=== PATIENT | female | born 1985 | race Caucasian/White ===

== ENCOUNTER 2022-04-18 16:51 | Emergency (ER) | payer OTHER ==
[~2022-04-18] VITALS: Ht 165.1 cm; Wt 82.0 kg
[2022-04-18 16:58] VITALS: BP 170/90
[2022-04-18] MEDS ORDERED: LEVO1.5T37 MT (18:35)
== END 2022-04-18 19:11 | disposition home or self-care (01) ==
LOC: ER 16:51
DX: Z30.012 Encounter for prescription of emergency contraception (principal); Z32.02 Encounter for pregnancy test, result negative; R03.0 Elevated blood-pressure reading, without diagnosis of hypertension; R22.42 Localized swelling, mass and lump, left lower limb
CPT/HCPCS: 81025; 99282

== ENCOUNTER 2023-11-03 13:14 | Emergency (ER) | payer OTHER ==
[~2023-11-03] VITALS: Ht 165.1 cm; Wt 81.6 kg
[~2023-11-03 13:14] MED LIST: LEVO1.5T37 MT
[2023-11-03 14:01] VITALS: O2SAT 100
[2023-11-03 15:55] LABS: CLARITY URINE CLEAR (CLEAR); COLOR URINE YELLOW (YELLOW); GLUCOSE URINE NEGATIVE (NEGATIVE); KETONES URINE NEGATIVE (NEGATIVE); LEUKOCYTE ESTERASE URINE 3+ (NEGATIVE); NITRITE URINE NEGATIVE (NEGATIVE); OCCULT BLOOD URINE 1+ (NEGATIVE); PH URINE 5.5 (4.5-8.0); PROTEIN URINE NEGATIVE (NEGATIVE); SPECIFIC GRAVITY URINE 1.009 (1.005-1.030); UROBILINOGEN URINE 0.2 E.U./dL (0.2-1.0)
[2023-11-03 16:17] LABS: BACTERIA URINE TRACE; SQUAMOUS EPITHELIAL CELL URINE 1+ /lpf (RARE/1+)
[2023-11-03] MEDS ORDERED: DOXY100T28 MT (16:30)
[2023-11-03] MEDS ORDERED: ACET-2708 MT (16:30)
[2023-11-03] MEDS: LIDOCAINE HCL 1% 20ML VIAL INFIL ONE (17:06)
[2023-11-03] MEDS: CEFTRIAXONE SODIUM 1G VIAL IM ONE (17:06)
[2023-11-03 17:17] VITALS: BP 133/76; PULSE 88; RESP 18; TEMP 98.7
[2023-11-07 13:06] LABS: CHLAMYDIA TRACHOMATIS NAA Negative (Negative); NEISSERIA GONORRHOEAE NAA Negative (Negative)
== END 2023-11-03 17:19 | disposition home or self-care (01) ==
LOC: ER 13:14
DX: N39.0 Urinary tract infection, site not specified (principal); N93.9 Abnormal uterine and vaginal bleeding, unspecified
CPT/HCPCS: 99283; 87491; 87591; 81003; 81025; 87086; 96372; J0696; J3490

== ENCOUNTER 2023-12-02 09:55 | Emergency (ER) | payer OTHER ==
[~2023-12-02] VITALS: Ht 162.6 cm; Wt 81.0 kg
[~2023-12-02 09:55] MED LIST changes: +ACET-2708 MT; +DOXY100T28 MT
[2023-12-02 10:05] VITALS: BP 146/117; PULSE 85; RESP 18; TEMP 98.2; O2SAT 97
[2023-12-02 11:20] LABS: CLARITY URINE CLEAR (CLEAR); COLOR URINE DARK YELLOW (YELLOW); GLUCOSE URINE NEGATIVE (NEGATIVE); KETONES URINE TRACE (NEGATIVE); LEUKOCYTE ESTERASE URINE 1+ (NEGATIVE); NITRITE URINE NEGATIVE (NEGATIVE); OCCULT BLOOD URINE NEGATIVE (NEGATIVE); PH URINE 5.5 (4.5-8.0); PROTEIN URINE 1+ (NEGATIVE); SPECIFIC GRAVITY URINE 1.028 (1.005-1.030)
[2023-12-02 11:41] LABS: BACTERIA URINE 2+; RBC URINE 0-2 /hpf (0-2); SQUAMOUS EPITHELIAL CELL URINE 1+ /lpf (RARE/1+); YEAST URINE NONE SEEN
[2023-12-02] MEDS ORDERED: CEFTRIAXONE SODIUM 500MG VIAL IM ONE (12:15)
[2023-12-02] MEDS ORDERED: DOXY-456 MT (12:33)
[2023-12-02] MEDS ORDERED: METR70GE5 VG (12:33)
[2023-12-05 04:07] LABS: CHLAMYDIA TRACHOMATIS NAA Negative (Negative); NEISSERIA GONORRHOEAE NAA Negative (Negative)
== END 2023-12-02 13:12 | disposition home or self-care (01) ==
LOC: ER 10:01
DX: N76.0 Acute vaginitis (principal); Z20.2 Contact with and (suspected) exposure to infections with a predominantly sexual mode of transmission; Z53.21 Procedure and treatment not carried out due to patient leaving prior to being seen by health care provider
CPT/HCPCS: 99284; 87491; 87591; 81003; 81025; 87210; J0696

== ENCOUNTER 2024-03-07 10:11 | Emergency (ER) | payer MEDICAID ==
[~2024-03-07] VITALS: Ht 165.1 cm; Wt 86.0 kg
[~2024-03-07 10:11] MED LIST changes: +DOXY100C74 MT; +METR70GE27 VG
[2024-03-07 10:18] VITALS: O2SAT 98
[2024-03-07 10:33] VITALS: BP 180/105; PULSE 95; RESP 16; TEMP 98.7; O2SAT 99
[2024-03-07 15:11] LABS: CLARITY URINE CLEAR (CLEAR); COLOR URINE YELLOW (YELLOW); GLUCOSE URINE NEGATIVE (NEGATIVE); KETONES URINE NEGATIVE (NEGATIVE); LEUKOCYTE ESTERASE URINE NEGATIVE (NEGATIVE); NITRITE URINE NEGATIVE (NEGATIVE); OCCULT BLOOD URINE 1+ (NEGATIVE); PH URINE 5.5 (4.5-8.0); PROTEIN URINE NEGATIVE (NEGATIVE); SPECIFIC GRAVITY URINE 1.006 (1.005-1.030); UROBILINOGEN URINE 0.2 E.U./dL (0.2-1.0)
[2024-03-07 15:59] LABS: BACTERIA URINE 1+; SQUAMOUS EPITHELIAL CELL URINE FEW /lpf (RARE/1+); WBC URINE 0-2 /hpf (0-2)
== END 2024-03-07 16:04 | disposition left against medical advice (07) ==
LOC: ER 10:37
DX: N39.0 Urinary tract infection, site not specified (principal); Z79.899 Other long term (current) drug therapy
CPT/HCPCS: 81003; 81025; 99283

== ENCOUNTER 2024-09-11 13:06 | Emergency (ER) | payer MEDICAID ==
[~2024-09-11] VITALS: Ht 165.1 cm; Wt 82.0 kg
[~2024-09-11 13:06] MED LIST changes: +DOXY-461 MT; -DOXY100C74 MT
[2024-09-11 14:06] VITALS: O2SAT 99
[2024-09-11 14:10] LABS: BASOPHILS % 0.9 % (0.0-2.0); EOSINOPHILS % 0.7 % (0.0-5.0); HEMATOCRIT. 39.6 % (36.0-48.0); HEMOGLOBIN. 13.1 g/dL (12.0-16.0); LYMPHOCYTES % 26.8 % (20.0-50.0); MEAN CORPUSCULAR HEMOGLOBIN 30.8 pg (28.0-32.0); MEAN CORPUSCULAR HGB CONC 32.9 g/dL (31.0-37.0); MEAN CORPUSCULAR VOLUME 93.7 fL (81.0-99.0); MONOCYTES % 8.4 % (2.0-8.0); NEUTROPHILS % 63.2 % (40.0-76.0); RED BLOOD CELL COUNT 4.23 mill/uL (4.2-5.4); RED CELL DISTRIBUTION WIDTH 13.3 % (11.6-14.6)
[2024-09-11 14:12] LABS: POTASSIUM 4.3 mEq/L (3.5-5.1)
[2024-09-11 14:16] LABS: DIFFERENTIAL COMMENT 1
[2024-09-11 14:18] LABS: CREATININE 1.1 mg/dL (0.6-1.0)
[2024-09-11 14:36] LABS: CLARITY URINE CLEAR (CLEAR); COLOR URINE YELLOW (YELLOW); GLUCOSE URINE NEGATIVE (NEGATIVE); KETONES URINE TRACE (NEGATIVE); LEUKOCYTE ESTERASE URINE NEGATIVE (NEGATIVE); NITRITE URINE POSITIVE (NEGATIVE); OCCULT BLOOD URINE NEGATIVE (NEGATIVE); PH URINE 5.5 (4.5-8.0); PROTEIN URINE NEGATIVE (NEGATIVE); SPECIFIC GRAVITY URINE 1.024 (1.005-1.030); UROBILINOGEN URINE 0.2 E.U./dL (0.2-1.0)
[2024-09-11 14:39] LABS: PLATELET 157 x1000/uL (130-400)
[2024-09-11 14:54] LABS: BACTERIA URINE 1+; RBC URINE 0-2 /hpf (0-2); SQUAMOUS EPITHELIAL CELL URINE 2+ /lpf (RARE/1+); YEAST URINE NONE SEEN
[2024-09-11] MEDS ORDERED: SULF1TAB48 MT (16:40)
[2024-09-11] MEDS ORDERED: PYR200 MT (16:40)
[2024-09-11 17:08] VITALS: BP 189/115; PULSE 82; RESP 18; TEMP 36.9; O2SAT 99
[2024-09-11] MEDS ORDERED: AMLO5TAB88 MT (17:37)
== END 2024-09-11 17:35 | disposition home or self-care (01) ==
LOC: ER 13:06
DX: N39.0 Urinary tract infection, site not specified (principal); I10 Essential (primary) hypertension; Z79.3 Long term (current) use of hormonal contraceptives
CPT/HCPCS: 36415; 80048; 81003; 81025; 85025; 99283